=== PATIENT | female | born 1995 | race Asian ===

== ENCOUNTER 2017-01-22 15:15 | Inpatient (IN) | payer BC, MEDICAID ==
[~2017-01-22] VITALS: Ht 167.6 cm; Wt 83.9 kg
[2017-01-22] MEDS ORDERED: OXYTOCIN 20 UNITS/LR PREMIX 1,000 ML IV SCH ×2 (15:22→15:40)
[2017-01-22] MEDS ORDERED: CARBOPROST 250 MCG/ML AMP IM PRN (15:25)
[2017-01-22] MEDS ORDERED: PROMETHAZINE 25 MG/ML VIAL IVP PRN (15:25)
[2017-01-22] MEDS ORDERED: METHYLERGONOVINE 0.2 MG/ML AMP IM SCH (15:25)
[2017-01-22] MEDS ORDERED: NALBUPHINE 10 MG/ML AMP IVP PRN (15:25)
[2017-01-22 15:30] VITALS: BP 116/68
[2017-01-22] MEDS ORDERED: OXYTOCIN 10 UNITS/ML VIAL IM ONE (15:30)
[2017-01-22] MEDS: LACTATED RINGERS 1,000 ML IV SCH ×2 (16:16→20:23)
[2017-01-22] MEDS ORDERED: BUPIVACAINE 0.125%/NS PREMIX 250 ML ONE (21:24)
[2017-01-23] MEDS ORDERED: OXYTOCIN 10 UNITS/ML VIAL ONE (08:32)
--- NOTE | 2017-01-23 08:47 | NUR ---
PATIENT HAS BEEN SCREENED AND CATEGORIZED LOW NUTRITION RISK. PATIENT WILL BE SEEN WITHIN 7 DAYS OF ADMISSION. 01/29/[address]
[2017-01-23] MEDS ORDERED: BENZOCAINE/MENTHOL 20%-0.5% 60 GM CAN TP PRN (11:35)
[2017-01-23] MEDS ORDERED: METHYLERGONOVINE 0.2 MG TAB PO PRN (11:35)
[2017-01-23] MEDS ORDERED: MEASLES, MUMPS, AND RUBELLA 1 VIAL SQVAC PRN (11:35)
[2017-01-23] MEDS ORDERED: TEMAZEPAM 15 MG CAP PO PRN (11:35)
[2017-01-23] MEDS ORDERED: oxyCODONE/APAP 5/325 MG 1 TAB TAB PO PRN (11:35)
[2017-01-23] MEDS ORDERED: HYDROcodone/APAP 5/325 MG 1 TAB TAB PO PRN (11:35)
[2017-01-23] MEDS ORDERED: DOCUSATE SOD/SENNA 50/8.6 MG 1 TAB PO SCH (21:00)
[2017-01-23] MEDS: IBUPROFEN 800 MG TAB PO PRN (21:37)
[2017-01-24] MEDS ORDERED: INFLUENZA VIRUS VACCINE QUAD 0.5 ML SYR IMVAC SCH (05:10)
[2017-01-24] MEDS: IBUPROFEN 800 MG TAB PO PRN ×2 (06:55→18:21)
[2017-01-25] MEDS: IBUPROFEN 800 MG TAB PO PRN ×3 (06:46→22:40)
== END 2017-01-25 23:20 | disposition home or self-care (01) | DRG 775 ==
LOC: MLD 15:15 → MFCC 01-23 10:53
PROVIDERS: ADMIT Obstetrics & Gynecology; ATTEND Obstetrics & Gynecology
PROC: 10E0XZZ Delivery of Products of Conception, External Approach (ICD-10-PCS; principal; 2017-01-23)
PROC: 0W8NXZZ Division of Female Perineum, External Approach (ICD-10-PCS; 2017-01-23)
PROC: 00HU33Z Insertion of Infusion Device into Spinal Canal, Percutaneous Approach (ICD-10-PCS; 2017-01-23)
PROC: 3E0R3CZ (ICD-10-PCS; 2017-01-23)
PROC: 3E033VJ Introduction of Other Hormone into Peripheral Vein, Percutaneous Approach (ICD-10-PCS; 2017-01-23)
PROC: 3E0234Z Introduction of Serum, Toxoid and Vaccine into Muscle, Percutaneous Approach (ICD-10-PCS; 2017-01-24)
DX: O60.23X0 Term delivery with preterm labor, third trimester, not applicable or unspecified (principal); Z3A.40 40 weeks gestation of pregnancy; Z37.0 Single live birth; Z23 Encounter for immunization